=== PATIENT | female | born 1985 | race Caucasian/White ===

== ENCOUNTER 2018-01-15 00:43 | Emergency (ER) | payer OTHER ==
[~2018-01-15] VITALS: Ht 157.5 cm; Wt 108.9 kg
[~2018-01-15 00:43] MED LIST: LOESTRIN FE 1/21 TAB PO; MACROBID 100 M100 MG PO; MULTIVITAMIN1 TAB PO; VITAMIN C500 M1; ZINC50 M1
--- NOTE | 2018-01-15 00:57 | ED DYSPNEA/ASTHMA COMPLAINT ---
History of Present Illness General Chief Complaint: Upper Respiratory Sx/Fever Stated Complaint: COUGH,24WKS PREG ON PREDNIZONE Source: patient Exam Limitations: no limitations Vital Signs & Intake/Output Vital Signs & Intake/Output Vital Signs Date Time Temp Pulse Resp B/P B/P Pulse O2 O2 Flow FiO2 Mean Ox Delivery Rate 01/15 0134 98 01/15 0055 97.0 113 20 148/73 95 Room Air Allergies Coded Allergies: codeine (Intermediate, ABDOMINAL PAIN 01/15/18) oxycodone (Intermediate, VOMITING 01/15/18) Reconcile Medications Albuterol Sulfate (Ventolin Hfa) 90 MCG HFA.AER.AD 2 PUF INH Q4-6 PRN PRN ASTHMA/ RESP INFECTION (Reported) Amoxicillin/Potassium Clav (Augmentin 875-125 Tablet) 875 MG-125 MG TABLET 1 TAB PO BID BRONCHITIS Loratadine (Claritin) 5 MG TAB.RAPDIS 1 TAB PO DAILY ALLERGIES (Reported) Methylprednisolone. (Medrol) 4 MG TAB.DS.PK 1 DP PO AD ASTHMA/BRONCHITIS 6 on day 1 then reduce by one tablet daily until gone Pnv No.122/Iron/Folic Acid ( Multi Tablet) 27 MG IRON-800 MCG TABLET 1 TAB PO DAILY (Reported) Prednisone 50 MG TABLET 1 TAB PO DAILY RESP INFECTION (Reported) Triage Nurses Notes Reviewed? yes Onset: Gradual Duration: day(s): Timing: recent history Severity: mild Activities at Onset: none Prior Episodes/Possible Cause: occasional episodes Modifying Factors: Improves With: rest. Associated Symptoms: cough, wheezing : Yes Patient currently breastfeeds: No HPI: 32 yo woman 24 weeks gestation h/o asthma, presents with cough, wheezing x several days. She started prednisone 50mg via a walk-in center. "And it's not better.... I feel phlegm in my chest." No abdominal pain, cramps, vaginal bleeding. She is otherwise well. Past History Travel History Traveled to [place] past 21 day No Medical History Any Pertinent Medical History? 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 No Review of Systems Review of Systems Constitutional: Reports: no symptoms. EENTM: Reports: no symptoms. Respiratory: Reports: no symptoms. Cardiovascular: Reports: no symptoms. GI: Reports: no symptoms. Genitourinary: Reports: no symptoms. Musculoskeletal: Reports: no symptoms. Skin: Reports: no symptoms. Neurological/Psychological: Reports: no symptoms. Hematologic/Endocrine: Reports: no symptoms. Immunologic/Allergic: Reports: no symptoms. All Other Systems: Reviewed and Negative Physical Exam Physical Exam General Appearance: well developed/nourished, mild distress Head: atraumatic, normal appearance Eyes: Bilateral: normal appearance. Ears, Nose, Throat: normal pharynx, normal ENT inspection Neck: normal inspection, supple, full range of motion Respiratory: wheezing, prolonged expiratory phase Cardiovascular: regular rate/rhythm Gastrointestinal: normal bowel sounds, soft, non-tender Extremities: normal inspection, normal capillary refill, normal range of motion, no edema Neurologic/Psych: no motor/sensory deficits, awake, alert, oriented x 3 Skin: intact, normal color, warm/dry Core Measures ACS in differential dx? No CVA/TIA Diagnosis No Sepsis Present: No Sepsis Focused Exam Completed? No Progress Differential Diagnosis: asthma, bronchitis Plan of Care: duo neb and decadron given.... will intensify treatment with augmentin. Initial ED EKG: none Departure Departure Disposition: HOME OR SELF CARE Condition: Stable Clinical Impression Primary Impression: Bronchitis Secondary Impressions: Asthma Referrals: Brigitte Oliver MD (PCP/Family) Departure Forms: Customer Survey General Discharge Information Prescriptions: Current Visit Scripts Methylprednisolone. (Medrol) 1 DP PO AD #1 DP 6 on day 1 then reduce by one tablet daily until gone Amoxicillin/Potassium Clav (Augmentin 875-125 Tablet) 1 TAB PO BID #20 TAB Comments 01/15/18, 3am... pt is feeling better.... stable vitals.... + heart tones... will intensify treatment with augmentin/medrol dose pack... close follow up advised. Critical Care Note Critical Care Note Critical Care Time: non-applicable
[2018-01-15] MEDS ORDERED: CLARITIN5 MG PO (00:59)
[2018-01-15] MEDS ORDERED: PREDNISONE50 M1 PO (00:59)
[2018-01-15] MEDS ORDERED: VENTOLIN HFA18 GM INH (00:59)
[2018-01-15] MEDS ORDERED: PRENATAL MULTI1 EAC2 PO (01:00)
[2018-01-15] MEDS ORDERED: MEDROL4 M2 PO (01:18)
[2018-01-15] MEDS ORDERED: AUGMENTIN 875-1 EACH PO (01:18)
[2018-01-15 03:07] VITALS: BP 145/76
== END 2018-01-15 03:08 ==
LOC: ERH 00:43
DX: O26.92 Pregnancy related conditions, unspecified, second trimester (principal); J45.909 Unspecified asthma, uncomplicated; Z3A.24 24 weeks gestation of pregnancy
CPT/HCPCS: 1263; 1395; J3490

== ENCOUNTER 2018-04-14 13:29 | Inpatient (IN) | payer OTHER ==
[~2018-04-14] VITALS: Ht 157.5 cm; Wt 116.6 kg
[~2018-04-14 13:29] MED LIST changes: +AUGMENTIN 875-1 EACH PO; +CLARITIN5 MG PO; +MEDROL4 M2 PO; +PREDNISONE50 M1 PO; +PRENATAL MULTI1 EAC2 PO; +VENTOLIN HFA18 GM INH
[2018-04-14 14:02] LABS: ABSOLUTE BASOPHIL COUNT 0.1 /CUMM (0.0-0.2); ABSOLUTE EOSINOPHIL COUNT 0.1 /CUMM (0.0-0.7); ABSOLUTE GRANULOCYTE CT 9.6 /CUMM (1.4-6.5); ABSOLUTE LYMPH COUNT 2.1 /CUMM (1.2-3.4); ABSOLUTE MONOCYTE COUNT 0.7 /CUMM (0.10-0.60); BASOPHIL % 0.7 % (0.0-2.0); EOSINOPHIL % 0.6 % (0-5); GRANULOCYTE % 76.3 % (42.2-75.2); HEMATOCRIT 37.8 % (37-47); MEAN CORPUSCULAR HGB 29.3 PG (27.0-31.0); MEAN CORPUSCULAR HGB CONC 34.6 G/DL (33.0-37.0); MEAN CORPUSCULAR VOLUME 84.8 FL (81.0-99.0); MEAN PLATELET VOLUME 9.3 FL (7.4-10.4); PLATELET COUNT 380 /CUMM (130-400); RBC DISTRIBUTION WIDTH 13.8 % (11.5-14.5); RED BLOOD CELL CT 4.46 /CUMM (4.20-5.40); WHITE BLOOD CELL COUNT 12.5 /CUMM (4.8-10.8)
[2018-04-14] MEDS ORDERED: VALTREX500 M1 PO (14:32)
[2018-04-14] MEDS ORDERED: VENTOLIN HFA18 GM PO (14:33)
[2018-04-14] MEDS ORDERED: PRENATAL TABLE1 EAC2 PO (14:34)
--- NOTE | 2018-04-14 16:01 | History & Physical ---
See Addendum General Information and HPI MD Statement: I have seen and personally examined SHELBY NAZARIO and documented this H&P. Source of Information: patient, old records Exam Limitations: no limitations History of Present Illness: The patient is a 32 year old at 37 weeks and 1 days gestation who presented with a chief complaint of preeclampsia without severe features for primary c/s due to h/o anal fissure surgery. BP initially elevated 03/07/17. No PACHECO / BV / RUGQ / epig pain. No N/V. No ctx / lof / vb +FM. AP care otherwise uncomplicated. Allergies/Medications Allergies: Coded Allergies: lactose (Mild, DIARRHEA 04/14/18) codeine (Intermediate, ABDOMINAL PAIN 01/15/18) oxycodone (Intermediate, VOMITING 01/15/18) Uncoded Allergies: fuzzy fruit (Mild, rash/itching 04/14/18) cantelope, peaches, kiwi, any fruit that has fuzz metal (Mild, rash 04/14/18) Home Med list Albuterol Sulfate (Ventolin Hfa) 90 MCG HFA.AER.AD 2 PUF INH Q4-6 PRN PRN ASTHMA/ RESP INFECTION (Reported) Albuterol Sulfate (Ventolin Hfa) 90 MCG HFA.AER.AD 90 MCG PO PRN ASTHMA ( Reported) Amoxicillin/Potassium Clav (Augmentin 875-125 Tablet) 875 MG-125 MG TABLET 1 TAB PO BID BRONCHITIS Loratadine (Claritin) 5 MG TAB.RAPDIS 1 TAB PO DAILY ALLERGIES (Reported) Methylprednisolone. 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 History: none Medical History Neurological: NONE EENT: NONE Cardiovascular: NONE Respiratory: NONE (mild intermittent), asthma Gastrointestinal: NONE Hepatic: NONE Renal: NONE Musculoskeletal: NONE Psychiatric: NONE Endocrine: NONE Blood Disorders: NONE Cancer(s): NONE 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 No Contractions: irreg #1 - FHR Baseline: 120 Category: 1 Estimated Weight: 3200gr Presentation: vtx Patient for Induction? No Labs Blood Type & Rh: Apos Antibody Screen: neg Hct/Hgb & Platelets #1: 13.1/41, 340 Hct/Hgb & Platelets #2: 12.7/41, 378 Rubella: imm VDRL #1: neg VDRL #2: neg HbsAg: neg HIV #1: neg HIV #2 neg 1 Hr P Group B Strep: neg Initial Ultrasound: 09/24 7+4 cwd Anatomy Ultrasound: nl polina Genetic Testing: nl coounsyl Last 24 Hrs of Labs/Evelio: Laboratory Tests 04/14/18 1355: Ur Random Creatinine 137.4, U Random Total Protein 18 H, Protein/Creatinin Ratio 0.1 04/14/18 1355: Urine Color YEL, Urine Clarity HAZY H, Urine pH 6.0, Ur Specific [place] 1.020, Urine Protein TRACE H, Urine Ketones TRACE H, Urine Nitrite NEG, Urine Bilirubin NEG, Urine Urobilinogen 0.2, Ur Leukocyte Esterase NEG, Ur Microscopic SEDIMENT EXAMINED, Urine RBC 1-3, Urine WBC 1-3 H, Ur Epithelial Cells FEW, Urine Bacteria FEW H, Urine Mucus MANY H, Urine Hemoglobin NEG, Urine Glucose NEG 04/14/18 1343: Estimated GFR > 60, Uric Acid 6.4 H, AST 25, ALT 34, Lactate Dehydrogenase 421, CBC w Diff NO MAN DIFF REQ, RBC 4.46, MCV 84.8, MCH 29.3, MCHC 34.6, RDW 13.8, MPV 9.3, Gran % 76.3 H, Lymphocytes % 17.1 L, Monocytes % 5.3, Eosinophils % 0.6, Basophils % 0.7, Absolute Granulocytes 9.6 H, Absolute Lymphocytes 2.1, Absolute Monocytes 0.7 H, Absolute Eosinophils 0.1, Absolute Basophils 0.1 Microbiology 04/14 1355 URINE ROUT: Urine Culture - RECD Assessment/Plan Assessment/Plan: P0 37wks pec, and maternal status reassuring. h/o anal sphincter sx for fissures. -admit for prim c/s -anesthesia and peds aware -international accountant to or As Ranked By This Provider Problem List: 1. Core Measures Venous Thromboembolism VTE Risk Factors / No Mechanical VTE Prophylaxis d/t Early Ambulation No VTE Pharm Prophylaxis d/t NA PharmProphylax ordered Attending MD Review Statement Attending Statement Attending MD Statement: examined this patient, discussed w/nursing
--- NOTE | 2018-04-14 18:25 | Labor & Delivery Summary ---
Delivery Summary Section: Section: primary Placenta: Placenta: spontanteous Anesthesia: block Baby's Weight: 3085 GR Apgars - 1 Min: 8 Apgars - 5 Min: 9 Additional Comments: UNCOMPLICATED PRIM C/S
--- NOTE | 2018-04-14 19:11 | Operative Report ---
Operative/Inv Procedure Report Surgery Date: 04/14/18 Name of Procedure: Primary low flap transverse section Pre-Operative Diagnosis: Preeclampsia without severe features at 37 weeks, history of anal sphincterotomy for anal fissures Post-Operative Diagnosis: Same Estimated Blood Loss: 800cc Surgeon/Addressing Machine Operator: He SANCHEZ,Deedee Barth MD Anesthesia: block Drains: Colin to gravity Specimens: Placenta Complications: None Condition: Stable Operative/Procedure Note Note: The patient was taken to the operating room where spinal anesthesia was obtained without difficulty. She was then placed in dorsal supine position with a leftward tilt. She was then prepped and draped in the usual sterile fashion. A Pfannenstiel skin incision was then made with a scalpel and carried through to the underlying layer of fascia. The fascia was incised in the midline and the incision extended laterally with the Goel scissors. The inferior aspect of the fascial incision was bluntly and sharply dissected off the rectus muscles. Attention was then turned to the superior aspect of the fascial incision which was again grasped with a Ronny clamps elevated, bluntly and sharply dissected off the rectus muscles with the Ogel scissors. The rectus muscles were then bluntly in the midline. The peritoneum was identified and bluntly entered. The bladder blade was then inserted. A bladder flap was then created. The lower uterine incision was then made with the scalpel and extended bluntly. The amniotic membranes were ruptured with an Allis clamp and noted to have clear fluid. The infant was then delivered from TERENCE position without difficulty. The mouth and nose were then bulb suctioned. The cord was clamped and cut and the infant was handed off to the waiting deputy jailer. Cord gases were sent. Three-vessel cord was then delivered with fundal massage. The uterus remained in the patient's abdomen and the uterus was cleared of all clots and debris with a dry lap. The bladder blade was then reinserted. The uterine incision was then closed in 2 layers with 0 Vicryl in a running locking fashion. Excellent hemostasis was noted. The uterus contracted well. The gutters were cleared of all clots and debris. Both fallopian tubes and ovaries were visualized and noted to appear normal. The rectus was then reapproximated with 0 Vicryl in a U stitch fashion. The fascia was then reapproximated with 0 Vicryl in a running fashion. The subcutaneous layer was then closed with 2-0 Vicryl interrupted sutures. The skin was closed with 4-0 Vicryl in a subcuticular fashion. Excellent hemostasis was noted. All counts were reported to be correct 2. The patient was taken to the recovery room in stable condition. Findings: Live male , Apgars 8/9, weight 3085 g
[2018-04-14 19:57] VITALS: BP 124/76
--- NOTE | 2018-04-15 09:45 | PN- Post Delivery/GYN ---
Subjective Subjective: pt is sitting in chair, no complaints, tolerate diet, flatus(+), teixeira removed AM, yet to void. Review of Systems Constitutional: Reports: no symptoms. EENTM: Reports: no symptoms. Cardiovascular: Reports: no symptoms. Respiratory: Reports: no symptoms. Gastrointestinal: Reports: no symptoms. Genitourinary: Reports: see HPI. All Other Systems: Reviewed and Negative Objective Last 24 Hrs of Vital Signs/I&O Vital Signs Date Time Temp Pulse Resp B/P B/P Pulse O2 O2 Flow FiO2 Mean Ox Delivery Rate 04/14 1957 124/76 Physical Exam: PE: VSS, BP WNL CV RRRLUngs CTA B/L Abdomen: soft, mild tender at incision site, uterus firm, fundus beldow umbilicus, incision steristrip blood stained, no active bleeding. lochia mild Ext: DCT (-), edema (+) Current Medications: Current Medications Sig/Wily Start time Last Medication Dose Route Stop Time Status Admin Acetaminophen 650 MG Q4P PRN 04/14 1845 AC PO Acetaminophen 325 MG Q4P PRN 04/14 1845 AC PO Cefazolin Sodium 2,000 MG .STK-MED ONE 04/14 1511 DC IM 04/14 1512 Citric Acid/Sodium 30 ML ONCE ONE 04/14 1345 DC 04/14 Citrate PO 04/14 1346 1620 Diphenhydramine HCl 25 MG SEE ADMIN CRITERIA 04/14 2200 AC IV Docusate Sodium 100 MG BID 04/14 2100 AC 04/15 PO 0937 Enoxaparin Sodium 40 MG DAILY 04/15 0900 AC 04/15 SC 0937 Fentanyl Citrate 100 MCG .STK-MED ONE 04/14 1510 DC IM 04/14 1511 Ibuprofen 800 MG Q6P PRN 04/14 1830 AC PO Ketorolac 30 MG SEE ADMIN CRITERIA 04/14 2200 AC 04/15 Tromethamine IV 04/15 2159 0658 Lactated Ringer's 1,000 ML Q8H 04/14 1345 AC 04/15 IV 0408 Metoclopramide HCl 10 MG Q6P PRN 04/14 2200 AC IV Midazolam HCl 5 MG .STK-MED ONE 04/14 1510 DC IM 04/14 1511 Morphine Sulfate 10 MG .STK-MED ONE 04/14 1509 DC IV 04/14 1510 Naloxone HCl 0.4 MG SEE ADMIN CRITERIA 04/14 2200 AC IV Oxytocin 20 UNITS ONCE ONE 04/14 2215 DC 04/14 Lactated Ringer's 1,000 ML IV 04/15 614 1830 Oxytocin 20 UNITS ONCE ONE 04/14 2215 DC IU 04/14 2216 Simethicone 80 MG Q6P PRN 04/14 1845 AC PO Last 24 Hrs of Labs/Evelio: Laboratory Tests 04/14/18 1355: Ur Random Creatinine 137.4, U Random Total Protein 18 H, Protein/Creatinin Ratio 0.1 04/14/18 1355: Urine Color YEL, Urine Clarity HAZY H, Urine pH 6.0, Ur Specific [place] 1.020, Urine Protein TRACE H, Urine Ketones TRACE H, Urine Nitrite NEG, Urine Bilirubin NEG, Urine Urobilinogen 0.2, Ur Leukocyte Esterase NEG, Ur Microscopic SEDIMENT EXAMINED, Urine RBC 1-3, Urine WBC 1-3 H, Ur Epithelial Cells FEW, Urine Bacteria FEW H, Urine Mucus MANY H, Urine Hemoglobin NEG, Urine Glucose NEG 04/14/18 1343: Estimated GFR > 60, Uric Acid 6.4 H, AST 25, ALT 34, Lactate Dehydrogenase 421, CBC w Diff NO MAN DIFF REQ, RBC 4.46, MCV 84.8, MCH 29.3, MCHC 34.6, RDW 13.8, MPV 9.3, Gran % 76.3 H, Lymphocytes % 17.1 L, Monocytes % 5.3, Eosinophils % 0.6, Basophils % 0.7, Absolute Granulocytes 9.6 H, Absolute Lymphocytes 2.1, Absolute Monocytes 0.7 H, Absolute Eosinophils 0.1, Absolute Basophils 0.1 Microbiology 04/14 1355 URINE ROUT: Urine Culture - RECD Assessment/Plan Assessment/Plan 32yo, s/p PLTCS, POD #1 1. encourage ambualtion and 2. pain management as needed 3. RT PP care, monitor BP closely Attending MD Review Statement Attending Statement Attending MD Statement: examined this patient, discussed with nursing
[2018-04-15 11:58] LABS: ABSOLUTE BASOPHIL COUNT 0.1 /CUMM (0.0-0.2); ABSOLUTE EOSINOPHIL COUNT 0.1 /CUMM (0.0-0.7); ABSOLUTE GRANULOCYTE CT 8.4 /CUMM (1.4-6.5); ABSOLUTE LYMPH COUNT 1.8 /CUMM (1.2-3.4); ABSOLUTE MONOCYTE COUNT 0.9 /CUMM (0.10-0.60); BASOPHIL % 0.6 % (0.0-2.0); EOSINOPHIL % 0.6 % (0-5); HEMATOCRIT 33.1 % (37-47); MEAN CORPUSCULAR HGB 29.2 PG (27.0-31.0); MEAN CORPUSCULAR HGB CONC 34.2 G/DL (33.0-37.0); MEAN CORPUSCULAR VOLUME 85.4 FL (81.0-99.0); MEAN PLATELET VOLUME 9.5 FL (7.4-10.4); PLATELET COUNT 296 /CUMM (130-400); RBC DISTRIBUTION WIDTH 14.1 % (11.5-14.5); RED BLOOD CELL CT 3.88 /CUMM (4.20-5.40); WHITE BLOOD CELL COUNT 11.2 /CUMM (4.8-10.8)
--- NOTE | 2018-04-16 13:20 | PN- Post Delivery/GYN ---
Subjective Subjective: Resting in bed now, after sitting up and ambulating around the room for the past 2 hours. States her pain is under very good control with Motrin/Tylenol alternating. No pain at rest, only while changing positions. Voiding since yesterday without difficulty. Scant lochia rubra. Tolerated a solid breakfast, no N&V. going well, baby latching without difficulty, but he falls asleep while nursing. He'll get some formula supplementation today. Review of Systems Constitutional: Denies: chills, fever. EENTM: Denies: visual changes. Cardiovascular: Reports: peripheral edema. Denies: palpitations. Respiratory: Denies: cough, short of breath. Gastrointestinal: Denies: abdominal pain, distention, nausea, vomiting. Genitourinary: Denies: dysuria, pain. Musculoskeletal: Denies: back pain, neck pain. Skin: Denies: erythema, rash. Neurological/Psychological: Denies: anxiety, depressed, headache, weakness. All Other Systems: Reviewed and Negative Objective Last 24 Hrs of Vital Signs/I&O vitals documented elsewhere Physical Exam General Appearance Alert, Oriented X3, No Acute Distress Skin No Rashes HEENT Mucous Membr. moist/pink Neck Supple Lymphatic Cervical nl Cardiovascular Regular Rate Lungs Normal Air Movement Abdomen Normal Bowel Sounds, Soft, No Tenderness, No Hepatospenomegaly, No Masses Neurological Normal Speech, Normal Tone, Reflexes 2+, no clonus Extremities 2+ nonpitting pedal edema Breasts Breast appear nl Current Medications: Current Medications Sig/Wily Start time Last Medication Dose Route Stop Time Status Admin Acetaminophen 650 MG .STK-MED ONE 04/15 2208 DC PO 04/15 2209 Acetaminophen 650 MG .STK-MED ONE 04/15 1734 DC PO 04/15 173 Acetaminophen 650 MG Q4P PRN 04/14 1845 AC 04/16 PO 0749 Acetaminophen 325 MG Q4P PRN 04/14 1845 AC PO Diphenhydramine HCl 25 MG SEE ADMIN CRITERIA 04/14 220 AC IV Docusate Sodium 100 MG BID 04/14 2100 AC 04/16 PO 0916 Enoxaparin Sodium 40 MG DAILY 04/15 0900 AC 04/16 SC 0916 Ibuprofen 800 MG .STK-MED ONE 04/16 0146 DC PO 04/16 0147 Ibuprofen 800 MG .STK-MED ONE 04/15 1734 DC PO 04/15 1735 Ibuprofen 800 MG .STK-MED ONE 04/15 1109 DC PO 04/15 1110 Ibuprofen 800 MG Q6P PRN 04/14 1830 AC 04/16 PO 0749 Ketorolac 30 MG SEE ADMIN CRITERIA 04/14 2200 DC 04/15 Tromethamine IV 04/15 2159 0658 Lactated Ringer's 1,000 ML Q8H 04/14 1345 DC 04/15 IV 0408 Metoclopramide HCl 10 MG Q6P PRN 04/14 2200 AC IV Naloxone HCl 0.4 MG SEE ADMIN CRITERIA 04/14 2200 AC IV Simethicone 80 MG Q6P PRN 04/14 1845 AC PO Assessment/Plan Assessment/Plan recovering well s/p primary C/S Problem List: 1. Post-operative pain under very good control with non-narcotic medication 2. Preeclampsia 3. Healed anal sphincter tear 4. Morbid obesity 5. with 37 weeks completed gestation Attending MD Review Statement Attending Statement Attending MD Statement: examined this patient, discussed with family, reviewed EMR data (avail), discussed with nursing Attending Assessment/Plan: Patient and her request a circumcision for their new son Laci. The risks, benefits, purpose, and alternatives of circumcision were d/w the patient, questions answered, and informed consent obtained.
[2018-04-17] MEDS ORDERED: IBUPROFEN800 M1 PO (09:20)
[2018-04-17] MEDS ORDERED: TYLENOL325 M1 PO (09:20)
--- NOTE | 2018-04-17 09:34 | PN- OBGYN ---
Surgical Brief Attending Note Brief Attending Note: POD#3 pt is sitting in chair, no complaints, tolerate diet, void without difficulties, BM(+), ambulating well PE: VSS CV RRR Lungs CTA B/L Abdomen: soft, nontender, uterus firm, fundus below umbilicus, incision D/C/I, lochia mild Ext: DCT (-), edema 2+ A/P: 32yo, s/p PLTCS, POD#3 1. encourage ambualtion and breatsfeeding 2. pain management as needed 3. edema 2+, will give lasix 40mg PO x 1 dose today 4. will d/c home, f/u in office for BP check in 1 wk, PP preeclampsia precautions and discharge instructions given, she understand.
== END 2018-04-17 10:55 | DRG 766 ==
LOC: GNO 13:29
PROVIDERS: Obstetrics & Gynecology
PROC: 10D00Z1 Extraction of Products of Conception, Low, Open Approach (ICD-10-PCS; principal; 2018-04-14)
DX: O14.94 Unspecified pre-eclampsia, complicating childbirth (principal); Z3A.37 37 weeks gestation of pregnancy; Z37.0 Single live birth; Z88.5 Allergy status to narcotic agent; B00.9 Herpesviral infection, unspecified; O99.214 Obesity complicating childbirth
CPT/HCPCS: GNOS; 81001; 82570; 87086; J0690; J1200; J1650; J1885; J3490; J7120